=== PATIENT | male | born 1995 | race Caucasian/White ===

== ENCOUNTER 2023-12-24 00:08 | Emergency (ER) | payer OTHER ==
[~2023-12-24] VITALS: Ht 167.6 cm; Wt 90.6 kg
[2023-12-24] MEDS ORDERED: BENA25CA4 PO (00:24)
[2023-12-24] MEDS ORDERED: SYMB80INH INH (00:24)
[2023-12-24] MEDS ORDERED: albuterol inhaler (00:24)
[2023-12-24] MEDS ORDERED: ALLE24TA7 PO (00:24)
[2023-12-24 01:12] LABS: RSV AMPLIFICATION NEGATIVE (NEGATIVE)
[2023-12-24] MEDS: IPRATROPIUM 0.5MG/ALBUTEROL 2.5MG INH SOL UD 3ML (DUONEB) NEB ONE (01:51)
[2023-12-24] MEDS ORDERED: PRED20TA PO (02:18)
[2023-12-24] MEDS: predniSONE 20 MG TAB PO ONE (02:21)
[2023-12-24 02:25] VITALS: BP 163/98; TEMP 98.1; O2SAT 98
== END 2023-12-24 02:30 | disposition home or self-care (01) ==
LOC: M ED 00:08
DX: J45.901 Unspecified asthma with (acute) exacerbation (principal); F10.10 Alcohol abuse, uncomplicated; G40.909 Epilepsy, unspecified, not intractable, without status epilepticus; Z88.0 Allergy status to penicillin; Z88.1 Allergy status to other antibiotic agents; Z79.52 Long term (current) use of systemic steroids; Z79.899 Other long term (current) drug therapy
CPT/HCPCS: 71045; 87631; 94640; 99283; J7512

== ENCOUNTER → 2024-10-19 | Outpatient (CLI) | payer OTHER ==
[~2024-10-19] MED LIST: ALLE24TA7 PO; BENA25CA4 PO; PRED20TA PO; SYMB80INH INH; albuterol inhaler
[2024-10-19 09:23] LABS: HEMATOCRIT 45.5 % (42.0-52.0); HEMOGLOBIN 15.1 g/dl (13.5-17.5); MEAN CORPUSCULAR HGB CONC 33.2 g/dl (32.0-36.5); MEAN CORPUSCULAR VOLUME 81.4 fl (80.0-96.0); PLATELET COUNT, AUTOMATED 190 10^3/uL (150-450); RED BLOOD COUNT 5.59 10^6/uL (4.30-6.10); WHITE BLOOD COUNT 7.4 10^3/uL (4.0-10.0)
[2024-10-19 09:54] LABS: HEMOGLOBIN A1c 5.2 % (4.0-6.0)
[2024-10-19 09:55] LABS: ALKALINE PHOSPHATASE 76 U/L (40-129); ALT/SGPT 47 U/L (7.0-40); AST/SGOT 21 U/L (<34); BILIRUBIN,TOTAL 0.6 MG/DL (0.3-1.2); BLOOD UREA NITROGEN 15 MG/DL (9-23); CALCIUM LEVEL 9.5 MG/DL (8.5-10.1); CARBON DIOXIDE LEVEL 28 MMOL/L (20-31); CHLORIDE LEVEL 105 MMOL/L (98-107); CHOLESTEROL LEVEL 212 MG/DL (<200); CREATININE FOR GFR 1.04 MG/DL (0.70-1.30); GLOMERULAR FILTRATION RATE > 60.0 (>60); GLUCOSE, FASTING 100 MG/DL (60-100); HDL CHOLESTEROL 51.7 MG/DL (>40); LDL CHOLESTEROL 130.7 MG/DL (<100); NON-HDL-C 160.3 MG/DL; POTASSIUM SERUM 4.6 MMOL/L (3.5-5.1); SODIUM LEVEL 141 MMOL/L (136-145); TRIGLYCERIDES LEVEL 148 MG/DL (<150)
[2024-10-19 09:56] LABS: THYROID STIMULATING HORMONE 1.865 uIU/ML (0.55-4.78)
[2024-10-19 09:57] LABS: TESTOSTERONE 628 NG/DL (241-827)
[2024-10-21 12:02] LABS: PSA FREE 0.3 ng/mL; PSA TOTAL 1.3 ng/mL (< OR = 4.0)
== END ==
LOC: M LAB 08:24
PROVIDERS: ATTEND Physician Assistant
DX: N52.9 Male erectile dysfunction, unspecified (principal); J45.909 Unspecified asthma, uncomplicated